=== PATIENT | female | born 1965 | race Caucasian/White ===

== ENCOUNTER 2023-11-19 01:18 | Emergency (ER) | payer OTHER ==
[~2023-11-19] VITALS: Ht 172.7 cm; Wt 94.5 kg
[2023-11-19 01:28] LABS: BASOPHILS 0.8 % (0-2); EOSINOPHILS 3.5 % (0-6); HEMATOCRIT 40.2 % (35.0-50.0); HEMOGLOBIN 13.2 g/dL (12.0-18.0); LYMPHOCYTES 29.4 % (24-44); MCH 28.7 (27-36); MCHC 32.7 g/dl (30-36); MCV 87.8 fl (81-99); MONOCYTES 6.4 % (0-12); NEUTROPHILS 59.9 % (39-80); PLATELET COUNT 260 K/uL (140-440); RBC 4.58 M/ul (4.3-5.7); RDW 14.3 (10.5-15.0)
[2023-11-19 01:32] LABS: BILIRUBIN, URINE NEGATIVE (negative); BLOOD/HGB, URINE NEGATIVE (Negative); KETONE, URINE NEGATIVE (Negative); LEUK ESTERASE, URINE NEGATIVE (negative); NITRITE, URINE NEGATIVE (negative)
[2023-11-19] MEDS ORDERED: NICODERM CQ1 EAC1 TD (01:39)
[2023-11-19] MEDS ORDERED: VENTOLIN HFA18 GM INH (01:40)
[2023-11-19] MEDS ORDERED: METFORMIN HCL500 MG PO (01:41)
[2023-11-19] MEDS ORDERED: HYDROXYZINE HCL25 MG PO (01:41)
[2023-11-19 01:45] LABS: AMPHETAMINES, URINE NEGATIVE (NEGATIVE); BARBITURATES, URINE NEGATIVE (NEGATIVE); BENZODIAZEPINE, URINE NEGATIVE (NEGATIVE); BUPRENORPHINE, URINE NEGATIVE (NEGATIVE); CANNABINOID, URINE NEGATIVE (NEGATIVE); COCAINE, URINE NEGATIVE (NEGATIVE); ECSTASY, URINE NEGATIVE (NEGATIVE); FENTANYL, URINE NEGATIVE (NEGATIVE); METHADONE, URINE NEGATIVE (NEGATIVE); OPIATES, URINE NEGATIVE (NEGATIVE); OXYCODONE, URINE NEGATIVE (NEGATIVE); PHENCYCLIDINE, URINE NEGATIVE (NEGATIVE)
[2023-11-19 01:54] LABS: INR 0.88 (0.80-1.30); PROTIME 11.5 Sec (11.2-14.2)
[2023-11-19 01:55] LABS: ALBUMIN 3.5 g/dL (3.4-5.0); ALBUMIN/GLOBULIN RATIO 1.03 (1.1-2.4); ALCOHOL, MEDICAL <3 ng/dL (<3); ALKALINE PHOSPHATASE 98 U/L (46-116); ALT (SGPT) 29 U/L (14-59); ANION GAP 12.7 (7-21); AST (SGOT) 21 U/L (15-37); BILIRUBIN, TOTAL 0.2 ng/dL (0.2-1.0); BUN/CREATININE RATIO 19.54 (6.0-28.6); CALCIUM 8.7 mg/dL (8.5-10.1); CARBON DIOXIDE 28 mmol/L (21-32); CHLORIDE 104 mmol/L (98-107); CREATININE, SERUM 0.87 mg/dL (0.55-1.02); GLOMERULAR FILTRATION RATE,EST 76 mL/min (>60); MAGNESIUM 2.1 mg/dL (1.8-2.4); POTASSIUM 4.7 mmol/L (3.5-5.1); PROTEIN, TOTAL 6.9 g/dL (6.4-8.2); UREA NITROGEN 17 mg/dL (7-18)
[2023-11-19 01:56] LABS: PARTIAL THROMBOPLASTIN TIME 24.9 Sec (22.9-41.3)
[2023-11-19] MEDS ORDERED: ACETAMINOPHEN 500 MG TAB PO ONE (03:45)
[2023-11-19] MEDS ORDERED: XARELTO20 MG PO (03:58)
[2023-11-19] MEDS ORDERED: LISINOPRIL20 MG PO (03:58)
[2023-11-19] MEDS ORDERED: Rivaroxaban 10 MG TAB PO ONE (04:00)
[2023-11-19 04:16] VITALS: BP 134/109
--- NOTE | 2023-11-20 23:41 | EKG ---
[facility] [address] [place] [address] Signed Atrial flutter with variable AV block Cannot rule out Inferior infarct , age undetermined Abnormal ECG No previous ECGs available Confirmed by Mauro Powell MD () on 11/20/2023 11:41:36 PM Electronically Signed By: MAURO POWELL MD 11/20/23 234 PATIENT NAME: HARRY CAMARENA Electrocardiogram DATE OF : 61 PHYSICIAN: MAURO POWELL MD REPORT #: [id number] REPORT IS CONFIDENTIAL AND NOT TO BE RELEASED WITHOUT AUTHORIZATION
[2023-12-13] MEDS ORDERED: FLONASE ALLERG9.9 ML NAS (00:32)
== END 2023-11-19 04:18 | disposition home or self-care (01) ==
LOC: ED 01:18
PROVIDERS: Internal Medicine
DX: I48.92 Unspecified atrial flutter (principal); I50.9 Heart failure, unspecified; Z88.0 Allergy status to penicillin; Z79.899 Other long term (current) drug therapy; Z79.84 Long term (current) use of oral hypoglycemic drugs
CPT/HCPCS: 36415; 71045; 71260; 80053; 80307; 81003; 83036; 83735; 83880; 84443; 84484; 85025; 85379; 85610; 85730; 93005; 93010; 99285-25; A9270; G0480; Q9967

== ENCOUNTER 2025-05-14 06:58 | Emergency (ER) | payer OTHER ==
[~2025-05-14] VITALS: Ht 172.7 cm; Wt 88.8 kg
[~2025-05-14 06:58] MED LIST: FLONASE ALLERG9.9 ML NAS; HYDROXYZINE HCL25 MG PO; LISINOPRIL20 MG PO; METFORMIN HCL500 MG PO; NICODERM CQ1 EAC1 TD; VENTOLIN HFA18 GM INH; XARELTO20 MG PO
--- OUTSIDE RECORDS SUMMARY | 2025-05-14 07:05 | XMS ---
PreManage Notification: HARRY CAMARENA Security Bending Roll Hand Events No recent Security Events currently on file CRITERIA MET - 6 ED Visits in 6 Months - [facility] - 2 Visits in 30 Days CARE PROVIDERS -, [facility] Dentist: [facility] PHONE: [phone] [facility]: [facility] PHONE: [phone] SAMRA CORDERO Internal Medicine [facility] PHONE: [phone] Danyel has no Care Guidelines for this patient. E.D. VISIT COUNT (12 MO.) 9 Dennis Burroughs ([place] ) 1 [place] H[place] TOTAL 10 NOTE: Visits indicate total known visits. ED/UCC VISIT TRACKING (12 MO.) 05/14/2025 06:59 GRAHAM [place] TYPE: Emergency COMPLAINT: - BLOOD IN STOOL 04/23/2025 03:37 Dennis [place] ([place] [facility]) TYPE: Emergency DIAGNOSES: - Epigastric pain - Chest Pain - Weakness 04/15/2025 00:10 Dennis [place] ([place] TYPE: Emergency DIAGNOSES: - Epigastric pain - Chest Pain - Rib Pain 04/12/2025 11:42 Dennis [place] ([place] TYPE: Emergency DIAGNOSES: - Other fatigue - Dizziness - Dizzy 04/12/2025 00:17 Dennis [place] ([place] TYPE: Emergency DIAGNOSES: - Anxiety disorder, unspecified - Homeless - Mental health eval 04/09/2025 16:05 Dennis [place] ([place] TYPE: Emergency DIAGNOSES: - Dysuria - Unspecified urinary incontinence - Incontinence - Urinary Complaint 12/11/2024 01:57 Dennis [place] ([facility]) TYPE: Emergency DIAGNOSES: - Chest pain, unspecified - Frequency of micturition - Shortness of breath - Chest Pain - Chest Pressure 12/09/2024 10:41 Dennis [place] ([facility]) TYPE: Emergency DIAGNOSES: - Bitten or stung by nonvenomous insect and other nonvenomous arthropods, initial encounter - Insect bite (nonvenomous), right thigh, initial encounter - Bug Bites - Insect Bite 08/17/2024 08:41 Dennis [place] ([facility]) TYPE: Emergency DIAGNOSES: - Acute upper respiratory infection, unspecified - Cold-like Symptoms - Shortness of breath, weakness 05/22/2024 10:01 Dennis DONOHUE ([place] ) TYPE: Emergency DIAGNOSES: - Homelessness unspecified - Other psychoactive substance abuse, uncomplicated - Other stimulant abuse, uncomplicated - Mental Health Evaluation - Mental Issue INPATIENT VISIT TRACKING (12 MO.) No inpatient visits to display in this time frame [email or web address]
[2025-05-14 07:56] LABS: BASOPHILS 1.0 % (0.1-1.2); EOSINOPHILS 5.8 % (0.7-5.8); LYMPHOCYTES 23.8 % (19.3-51.7); MCH 29.3 PG (25.6-32.2); MCHC 32.8 g/dL (32.2-35.5); MCV 89.1 fL (79.4-94.8); MONOCYTES 7.5 % (4.7-12.5); NEUTROPHILS 61.7 % (34.0-71.1); RBC 4.51 M/uL (3.93-5.22)
[2025-05-14 08:07] LABS: INR 1.36 (0.80-1.30); PROTIME 16.3 Sec (11.2-14.2)
[2025-05-14 08:12] LABS: ALT (SGPT) 34.0 U/L (14-59); AST (SGOT) 38.0 U/L (15-37); GLOMERULAR FILTRATION RATE,EST 81.0 mL/min (>60); PROTEIN, TOTAL 6.4 g/dL (6.4-8.2); UREA NITROGEN 14.0 mg/dL (7-18)
[2025-05-14 08:31] LABS: ABO O; ANTIBODY SCREEN NEGATIVE; RH POSITIVE
[2025-05-14 09:08] VITALS: BP 122/76
== END 2025-05-14 09:08 | disposition home or self-care (01) ==
LOC: ED 06:58
PROVIDERS: Emergency Medicine
DX: K92.1 Melena (principal); E11.9 Type 2 diabetes mellitus without complications; I10 Essential (primary) hypertension; Z79.01 Long term (current) use of anticoagulants; Z88.0 Allergy status to penicillin; J45.909 Unspecified asthma, uncomplicated; Z79.899 Other long term (current) drug therapy
CPT/HCPCS: 36415; 80053; 85025; 85610; 86850; 86900; 86901; 99283